=== PATIENT | male | born 1940 | race Caucasian/White ===

== ENCOUNTER → 2023-06-13 07:07 | Outpatient (REF) | payer OTHER, SELFPAY ==
[2023-06-13 07:41] LABS: % Basophils 0.6 % (0-2); % Immature Granulocytes 0.3 % (0-0.5); % Lymphocytes 24.5 % (20.5-51.1); % Monocytes 10.2 % (1.7-9.3); % Neutrophils 60.4 % (42.2-75.2); Absolute Basophils 0.1 10^3/uL (0-0.2); Absolute Eosinophils 0.4 10^3/uL (0-0.7); Absolute Lymphocytes 2.1 10^3/uL (1.2-3.4); Absolute Monocytes 0.9 10^3/uL (0.1-0.6); Absolute Neutrophils 5.2 10^3/uL (1.4-6.5); Hematocrit 44.6 % (39.0-52.0); Hemoglobin 15.1 g/dL (13.0-18.0); Mean Corp Hgb Conc. 33.9 g/dL (33.0-37.0); Mean Corpuscular Hgb 32.4 pg (27.0-31.0); Mean Corpuscular Volume 95.7 fL (80.0-94.0); Mean Platelet Volume 9.8 fL (7.4-10.4); Nucleated Red Blood Cells % 0 % (-); Platelet Count 201 10^3/uL (130-400); Red Blood Cell Count 4.66 10^6/uL (4.70-6.10); Red Cell Dist. Width 12.2 % (11.5-14.5); White Blood Cell Count 8.7 10^3/uL (4.8-10.8)
[2023-06-13 10:53] LABS: ALT (SGPT) 16 U/L (0-50); AST (SGOT) 25 U/L (17-59); Albumin 4.1 g/dl (3.5-5.0); Alkaline Phosphatase 58 U/L (38-126); Blood Urea Nitrogen 13 mg/dl (9-20); Calcium 9.1 mg/dl (8.4-10.2); Carbon Dioxide 29 mmol/L (22-30); Chloride 104 mmol/L (98-107); Glucose 98 mg/dl (70-99); Potassium 4.7 mmol/L (3.5-5.1); Sodium 139 mmol/L (135-145); Total Bilirubin 0.7 mg/dl (0.2-1.3); Total Protein 7.5 g/dl (6.3-8.2); eGFR > 60.00
[2023-06-13 11:01] LABS: Digoxin < 0.4 ng/ml (0.8-2.0)
== END ==
LOC: REG 07:07
PROVIDERS: ATTENDING PHYSICIAN Internal Medicine Cardiovascular Disease; FAMILY PHYSICIAN Internal Medicine
DX: I48.0 Paroxysmal atrial fibrillation (principal)
CPT/HCPCS: 36415; 80053; 80162; 85025

== ENCOUNTER 2023-06-21 06:09 | Day surgery (SDC) | payer OTHER, SELFPAY ==
[2023-06-21] VITALS (10 sets, daily range): BP systolic 93–108; BP diastolic 65–80; BMI 25.4
[2023-06-21] MEDS: TYLENOL 1000 MG PO (07:29)
[2023-06-21 09:55] LABS: ACT-LR - POC 372 Seconds (116-155)
[2023-06-21 10:15] LABS: ACT-LR - POC 368 Seconds (116-155)
[2023-06-21 10:38] LABS: ACT-LR - POC 332 Seconds (116-155)
--- NOTE | 2023-06-21 11:29 | ITS.CL.ABL ---
Chuck Wagon Cook - Ablation
Ablation
Procedure Report:
AFIB ablation:
Mr. Lopez is a very pleasant 83 yr old gentleman, well known to Dr. Aguilera, with h/o AF ablation on 09/10/20 that included PVI, CTI and roof line for his fibrillation and flutters. He has had recurrence of AF and now paroxysmal AF with persistent
atrial flutter failing Tikosyn presented today to the EP lab for atrial fibrillation/flutter ablation
Date of Procedure:
06/21/2023
Indications:
Recurrent atrial fibrillation / flutter
Pre-Operative Diagnosis:
Recurrent atrial fibrillation / flutter
Post-Operative Diagnosis:
Recurrent atrial fibrillation / flutter
Procedure Performed:
Atrial fibrillation Redo ablation with wide area circumferential ablation (WACA) approach for pulmonary vein re-isolation
Roof line formation for atypical atrial flutter
Posterior wall isolation for recurrent atrial fibrillation
Cavotricuspid flutter ablation
Performing Physician:
Paige Urbano MD
Assistants:
EP staff
Anesthesia:
See anesthesia records
Detailed Description of the Procedure:
Written informed consent was obtained from the patient after a full explanation of the risks and benefits of the procedure including the risks of sedation and anesthesia.
The patient was brought to the electrophysiology laboratory in stable condition in fasting state. Continuous electrocardiographic and hemodynamic monitoring was initiated.
The initial rhythm was atrial flutter.
The procedure site was meticulously prepared with surgical scrub and allowed to dry with no pooling. Sterile draping was applied to cover the procedure site. The image intensifier was draped with sterile bag and positioned over the patient. After
infusion of local anesthetic, vascular access was obtained under ultrasound guidance and sheaths were placed over guide wire as detailed below.
Sheath and Catheter Placement:
The following catheters / sheaths were placed
Sheaths:
��������� Agilis sheath in right femoral vein upgraded from 8Fr in right femoral vein
��������� 7Fr in right femoral vein
��������� 9Fr in right femoral vein
Catheters:
��������� Biosense Mi Thermocool STSF bidirectional� - at locations of HRA, RV, LA and LV.
��������� Pentaray catheter � at locations of RA, RV, LA and LV
��������� ICE catheter -AcuNav -� at locations of RA, SVC, and RV.
��������� Decapolar Bard catheter in RA and CS
Intracardiac ECHO:
An 8-Ukrainian AcuNav intracardiac ECHO (ICE) probe was advanced through the 9-Ukrainian sheath in the left femoral vein into the right atrium under fluoroscopic and ICE ultrasound image guidance and a baseline ECHO study was performed. The left atrial
size was dilated. There was mild to moderate tricuspid regurgitation. The aortic valve was grossly normal. There was mild left ventricular systolic dysfunction. There was small circumferential pericardial effusion. The NAYA has decreased velocities
noted on Doppler. All the four veins were identified and has good flow identified.
During the procedure, ICE was used for monitoring of complications, guidance of trans-septal puncture, monitor the catheter position and tracking ablation lesions. No change in the pericardial space noted throughout the procedure.
Electroanatomic mapping (EAM) of the right atrium:
A J-tipped guidewire was advanced through the 8-Ukrainian sheath in the right femoral vein into the superior vena cava under EAM and ICE guidance. The 8-Ukrainian sheath was exchanged for Agilis sheath which was advanced into the superior vena cava. Using
the Pentaray catheter advanced through the sheath into the right atrium, an electroanatomic map (EAM) of the right atrium was created using [employer] Carto mapping system. The map was used to identify the trans-septal location.
First EP study was done that showed baseline measurements
AA 302
VV 604
QRS 116
QT 430
HV 46
Ablation # 1: Typical Atrial Flutter Ablation:
The flutter was entrained from prox CS and the distal CS and it was closer to the prox CS and distal CS was out consistent with typical flutter.
The RA was mapped that showed typical atrial flutter with reconnection at the CTI. The reconnection of the CTI area identified. Radiofrequency ablation was performed using a 3.5mm, open irrigation, force-sensing bidirectional ablation catheter
(Thermocool STSF) in the cavotricuspid isthmus from the tricuspid annulus to the IVC ridge. All the ablation lesions were guided by the [facility] SURPOINT module with the CTI lesions were limited to 45 nelson for SURPOINT lesion index goal of 450.
The tachycardia slowed and terminated with ablation into sinus rhythm.
��������������� -Bidirectional block was confirmed across the CTI line with differential pacing.
��������������� -Double potentials were spaced greater than 125 msec apart.
��������������� -The conduction time across the CTI line from proximal CS pacing was 198 msec.
��������������� -EAM of the right atrium was obtained with coronary sinus pacing and showed a line of block at the CTI.
��������������� -The time interval just lateral to the ablation lesions was 198 msec and the lateral wall was 145 msec
��������������� - All these maneuvers confirmed the block at the CTI line.
- Post ablation HV interval was unchanged at 45msec
Then attention was given to left atrial ablation.
Transseptal Puncture:
Heparin was initiated and infused to maintain appropriate ACT. A J-tipped guidewire was advanced through the 8-Ukrainian sheath in the right femoral vein into the superior vena cava under fluoroscopic and ICE guidance. The 8-Ukrainian sheath was exchanged
for an Agilis sheath which was advanced into the superior vena cava. A BRK transseptal needle was advanced until the tip was slightly behind the tip of the dilator inside the sheath. The apparatus was withdrawn until it was in contact with the fossa
ovalis.
The cardiac chambers had rotated anatomy and extreme care needed to performt he transseptal puncture.
The position of the needle and sheath was adjusted based on fluoroscopy and ultrasound images from ICE. Under fluoroscopic, hemodynamic and ICE ultrasound guidance, left atrium was cannulated by advancing the needle. Once atrial septum was
cannulated, the needle was pulled back and a BMW guide wire was advanced through the needle into the left atrium. The guide wire was advanced into the left superior pulmonary vein. Both the sheath and the dilator was advanced into the left atrium
under fluoro and ICE guidance. The dilator with the needle was withdrawn. Blood was aspirated from the Agilis sheath and arterial blood confirmed. The sheath was flushed. Saline injection noted into the left atrium on ICE. The mapping catheter was
advanced in the Agilis sheath into the left pulmonary vein.
3D Electroanatomic Mapping:
Using the Pentaray catheter advanced through Agilis sheath into the left atrium, an electroanatomic map (EAM) of the left atrium was created using [employer] Carto mapping system. The map was used for localization of catheter position and
tacking of ablation lesions. The EAM of the left atrium showed 4 pulmonary veins with the left sided pulmonary veins electrically reconectedt with some posterior wall electrical activity. The right sided superior and inferior pulmonary veins were
isolated from the body the LA. It showed moderate scar on the posterior and anterior wall of the LA. The LA was dilated in size.
Following the EAM, preparation were made for ablation.
Ablation # 2: Pulmonary vein Isolation:
Radiofrequency ablation was performed using an open irrigation, force-sensing 3.5mm radiofrequency ablation catheter (ThermoDeliveroo STSF) by completing the circumferential lesions around the left pulmonary vein achieving pulmonary vein isolation. There
was fractionated signal noted in the antrum of the LIPV and additional ablations were placed to create full isolation.
All the ablation lesions were guided by the [facility] SURPOINT module with the posterior lesions were limited to 45 nelson for SURPOINT lesion index goal of 400 and anterior wall lesions were limited to SURPOINT index goal of 450.
There were deep LSPV epicardial connections noted and those areas were ablated.
Ablation # 3: Roof line Formation:
There was a clear channel of electrical activity left in the posterior wall with multiple CFAE and AF areas on the roof significant scar noted on the roof with some residual electrical activity noted. This increased the risk of atrial flutter and
decision was made to create a roof line to block a slow conduction.
The previous roof line appears to have reconnection as well.
A set of radiofrequency ablations were placed on the roof line connecting the left superior pulmonary vein ablation lesions to the right superior pulmonary vein lesions rings.
Ablation # 4: Posterior wall isolation with the Box lesions set Formation:
There was a significant fractionation seen in the posterior wall and LA AF foci made it clear as the posterior wall is critical in maintaining the atrial fibrillation and the decision was made to isolate the posterior wall by creating a �Box�
lesions.
A set of radiofrequency ablations were placed on the floor line connecting the left inferior pulmonary vein ablation lesions to the right inferior pulmonary vein lesions rings.
Epicardial posterior wall connection ablation:
The EAM of the LA showed epicardial connection at the center of the left atrial posterior wall. The area was mapped and was paced that was able to capture the LA through that point. The epicardial connection had no signals around it and no capture
or was noted on the roof or the floor line.
The epicardial connection was ablated with ablation lesion with a single ablation the connection dissipated. The area was connected to the roof line and to the floor line.
The penta-ray in the posterior wall showed entrance block with dissociated potentials and the pacing from the posterior wall showed local capture with no exit from the box lesions confirming the exit block.
The esophagus was noted to be on the left of the LA based on the locations of the esophageal temperature probe. Ablation was stopped for any temperature increase of 0.1 degree C. Max esophageal temperature was 35.4C.
Confirmation of the PVI and bidirectional block:
Following achievement of entrance block at the pulmonary veins, pacing from the pentaray in each of the four veins at 10 milliamps for 2 milliseconds showed entrance and exit block.
EP study:
Normal AV conduction noted.
The sinus node has recovered and patient remained in sinus rhythm
All PVI were rechecked at the end of the case and remained isolated with dissociated and local capture with pacing. Entrance and exit block were demonstrated in all veins.
Procedure End
ICE study was done again that showed no epicardial accumulation. No complications noted.
Following the completion of the EP study, catheters were removed. Protamine 40 mg was given at the end of the procedure and ACT was checked repeatedly. The sheaths were removed and hemostasis achieved with manual compression after acceptable ACT is
achieved.
Left atrial Pressure:
Pre-Procedure: Mean LA pressure was 20mmHg
Post-Procedure: Mean LA pressure was 23mmHg
Post-Procedure: Mean RA pressure was 11mmHg
Estimated Blood loss:
<10 cc
Specimens Removed:
None.
Implants / Devices:
None
Urine output:
None
Packs / Drains/ Tubes:
None
Instrument / Sponge Count Correct:
Yes
Complications of the Procedure:
None
Condition of Patient at Time of Transfer:
Hemodynamically stable with no neurological or vascular compromise.
Summary:
Successful typcial atrial flutter ablation with atrial fibrillation ablation with redo Pulmonary vein isolation, Epicardial connection ablation on posterior wall, Roof line formation, posterior wall isolation, Cavo tricuspid atrial flutter ablation
Figures from the Procedure:
Figure 1: The electroanatomic mapping (EAM) of the left atrium with bipolar voltage (purple indicates normal electrical activity with red as no myocardial muscle electric activity indicating a line of block or scar.
--- NOTE | 2023-06-21 14:53 | W.PN.UPDATE ---
Update Note
Progress Note Update
83 yo WM s/p PVI/CTI flutter ablation (same day). He feels good, no cp, sob, vega diet, voiding, amb w/o dizziness, R fem site c/d/i no HT, soft. EKG with SR post procedure, then starting having paroxysms of Afib. He will continue OAC Eliquis dose at
430pm at home. He will stop digoxin and restart dofetilide 500mcg in am 06/21. He will have EKG in office on Sunday to assess need for DCCV. His procedure was prolonged and with his prior pericarditis post ablation he will be on colchicine bid for 1
mo. Activity restrictions reviewed. He will f/u PHLEBOTOMY DIRECTOR in 2 weeks after EKG. He is for d/c home after 3pm.
Mr. Lopez is a very pleasant 83 yr old gentleman, well known to Dr. Aguilera, with h/o AF ablation on 09/10/20 that included PVI, CTI and roof line for his fibrillation and flutters. He has had recurrence of AF and now paroxysmal AF with persistent
atrial flutter failing Tikosyn presented today to the EP lab for atrial fibrillation/flutter ablation
Date of Procedure:
06/21/2023
Procedure Performed:
Atrial fibrillation Redo ablation with wide area circumferential ablation (WACA) approach for pulmonary vein re-isolation
Roof line formation for atypical atrial flutter
Posterior wall isolation for recurrent atrial fibrillation
Cavotricuspid flutter ablation
== END 2023-06-21 15:07 | disposition home or self-care (01) ==
LOC: CATH 06:09
PROVIDERS: ATTENDING PHYSICIAN Internal Medicine Cardiovascular Disease; FAMILY PHYSICIAN Internal Medicine; OTHER PHYSICIAN Internal Medicine Cardiovascular Disease
DX: I48.0 Paroxysmal atrial fibrillation (principal); I48.3 Typical atrial flutter; Z79.01 Long term (current) use of anticoagulants; I25.10 Atherosclerotic heart disease of native coronary artery without angina pectoris; I10 Essential (primary) hypertension; Z95.1 Presence of aortocoronary bypass graft; Z86.73 Personal history of transient ischemic attack (TIA), and cerebral infarction without residual deficits; I25.5 Ischemic cardiomyopathy; Z95.810 Presence of automatic (implantable) cardiac defibrillator
CPT/HCPCS: C1769; C1894; C1730; C1732; C1766; C1892; C1759; 76937; 85347; 86850; 86900; 86901; 93005; 93655; 93656; 93657; C1760

== ENCOUNTER 2023-06-22 16:19 | Emergency (ER) | payer OTHER, SELFPAY ==
[2023-06-22] VITALS (7 sets, daily range): BP systolic 95–127; BP diastolic 59–73; BMI 24.4
[2023-06-22 16:46] LABS: % Basophils 0.3 % (0-2); % Eosinophils 0.5 % (0-6); % Immature Granulocytes 0.4 % (0-0.5); % Lymphocytes 14.1 % (20.5-51.1); % Monocytes 8.9 % (1.7-9.3); % Neutrophils 75.8 % (42.2-75.2); Absolute Eosinophils 0.1 10^3/uL (0-0.7); Absolute Immature Granulocytes 0.1 10^3/uL (0-0.05); Absolute Lymphocytes 2.1 10^3/uL (1.2-3.4); Absolute Monocytes 1.3 10^3/uL (0.1-0.6); Absolute Neutrophils 11.1 10^3/uL (1.4-6.5); Hematocrit 39.9 % (39.0-52.0); Hemoglobin 13.7 g/dL (13.0-18.0); Mean Corp Hgb Conc. 34.3 g/dL (33.0-37.0); Mean Corpuscular Hgb 32.9 pg (27.0-31.0); Mean Corpuscular Volume 95.9 fL (80.0-94.0); Mean Platelet Volume 10.2 fL (7.4-10.4); Nucleated Red Blood Cells % 0 % (-); Platelet Count 167 10^3/uL (130-400); Red Blood Cell Count 4.16 10^6/uL (4.70-6.10); Red Cell Dist. Width 12.2 % (11.5-14.5); White Blood Cell Count 14.7 10^3/uL (4.8-10.8)
[2023-06-22 16:57] LABS: ALT (SGPT) 18 U/L (0-50); AST (SGOT) 38 U/L (17-59); Albumin 4.4 g/dl (3.5-5.0); Alkaline Phosphatase 58 U/L (38-126); Blood Urea Nitrogen 25 mg/dl (9-20); Calcium 8.9 mg/dl (8.4-10.2); Carbon Dioxide 30 mmol/L (22-30); Chloride 101 mmol/L (98-107); Glucose 112 mg/dl (70-99); INR 1.38; PT 16.8 Sec (11.4-14.6); Potassium 4.3 mmol/L (3.5-5.1); Sodium 135 mmol/L (135-145); Total Bilirubin 0.9 mg/dl (0.2-1.3); Total Protein 7.6 g/dl (6.3-8.2); eGFR > 60.00
[2023-06-22 16:58] LABS: APTT 31.2 Sec (23.4-35.0)
[2023-06-22 17:10] LABS: Troponin I 0.876 ng/ml
--- NOTE | 2023-06-22 18:23 | EDRN ---
Carmela Sanchez PA in to see pt.
--- NOTE | 2023-06-22 18:24 | ED.GENMED ---
History of Present Illness
General
Chief Complaint: Numbness
Time Seen by Provider: 06/22/23 18:10
Travel History
Have you had any contact with someone who has COVID-19?: No
Do you have any symptoms of coronavirus? Fever > 100 degrees, chills, cough, shortness of breath, sore throat, loss of taste or smell, muscle aches, or headache?: No
History of Present Illness
History of Present Illness:
83-year-old male with history of A-fib, COPD, prior stroke, CHF, hypertension, and hyperlipidemia presents to the emergency department for evaluation of right hand weakness. He states that he felt the symptoms develop after waking up from his
cardiac ablation that was done yesterday. Time of onset is greater than 24 hours ago. Denies any additional symptoms although his spouse feels that his speech is not as clear as it should be, the patient attributes this to dry mouth. No
associated chest pain or shortness of breath. No recent fevers or chills. He held his Eliquis for 1 dose yesterday morning preablation and resumed that night.
Past History
Past History
ED Past Medical History: Arrthythmia (Atrial fibrillation), CAD, COPD, CVA, HTN, Hypercholesterolemia and Other (Coronary artery disease status post stents x6, status post NM, hypertension, hypercholesterolemia, status post pacer/defib)
ED Past Surgical History: Cardiac (AICD, NM with stents) and Other (Pneumothorax, hernia repair, vasectomy)
Social History
Tobacco: Former smoker
Alcohol: Occasional
Drug: None
Personal:
Living: with family
Family History
Family History: Early CAD
Review of Systems
Review of Systems
Allergies reviewed?: Yes
All Other Systems: ROS reviewed and negative except as documented in HPI and ROS
Phy Exam
Physical Exam
Physical Exam:
GEN: Well appearing, NAD, WDWN
HEENT: Oral mucosa moist, no scleral icterus, no nasal congestion
Cardiac: Regular rate
Lung: No respiratory distress, no tachypnea
MSK: No gross deformity or injuries
Skin: Good color, no pallor or jaundice, no rashes
Neuro: AO x3; CN II-XII grossly intact. Right hand strength is 4 out of 5, otherwise all mathew of the right upper extremity display 5 out of 5 strength, symmetric to the left. Bilateral lower extremity strength is 5 out of 5 and symmetric.
Sensation is globally intact throughout all mathew. Normal sdiary-gr-bvzv and slsv-dp-tyni. Diminished rapid alternating movements on the right hand
Psych: Calm, cooperative
Course
Orders/Labs/Results
Orders:
Orders
06/22/23 16:32
Electrocardiogram (*1) Urgent
Reason for Study: Other
Other Reason for Exam: Possible Stroke
EKG- Treatment ONCE
06/22/23 16:39
Complete Blood Count/With Diff Urgent
Comprehensive Metabolic Panel Urgent
PTT Urgent
Prothrombin Time Urgent
Troponin I Urgent
06/22/23 18:24
CT Head W/o Iv Contrast Urgent
Comment:
Reason For Exam: R hand weakness
06/22/23 18:32
Electrocardiogram (*1) Urgent
Reason for Study: Chest Pain
EKG- Treatment ONCE
06/22/23 18:37
Troponin I Urgent
06/22/23 20:01
CT Head & Neck Angio W/wo IV Urgent
Comment:
Reason For Exam: stroke symptoms
Apixaban [Eliquis] 5 mg PO NOW STA
Carvedilol [Coreg] 12.5 mg PO NOW STA
Colchicine 0.6 mg PO NOW STA
Rosuvastatin Calcium [Crestor] 10 mg PO NOW STA
06/22/23 20:19
Dofetilide [Tikosyn] 500 mcg PO NOW STA
Sacubitril 24/Valsartan 26 [Entresto 24 mg/26 mg] 0.5 tab PO NOW STA
Abnormal Lab Results
06/22/23 06/22/23
16:39 18:37
WBC 14.7 H 10^3/uL
(4.8-10.8)
RBC 4.16 L 10^6/uL
(4.70-6.10)
MCV 95.9 H fL
(80.0-94.0)
MCH 32.9 H pg
(27.0-31.0)
Abs Immat Gran (auto) 0.1 H 10^3/uL
(0-0.05)
Absolute Neuts (auto) 11.1 H 10^3/uL
(1.4-6.5)
Absolute Monos (auto) 1.3 H 10^3/uL
(0.1-0.6)
Neutrophils % 75.8 H %
(42.2-75.2)
Lymphocytes % 14.1 L %
(20.5-51.1)
PT 16.8 H Sec
(11.4-14.6)
BUN 25 H mg/dl
(9-20)
Glucose 112 H mg/dl
(70-99)
Troponin I 0.876 H* ng/ml 0.745 H* ng/ml
06/22/23 16:39
06/22/23 16:39
Vital Signs
Initial and Last Documented VS:
Initial Vital Signs
Temp Pulse Resp BP Pulse Ox
98.2 F 78 16 127/69 98
06/22/23 16:23 06/22/23 16:23 06/22/23 16:23 06/22/23 16:23 06/22/23 16:23
Last Documented Vital Signs
Temp Pulse Resp BP Pulse Ox
98.2 F 69 17 107/66 94
06/22/23 16:23 06/22/23 21:52 06/22/23 21:52 06/22/23 21:52 06/22/23 19:00
MDM/Problems Addressed
MDM/Problems Addressed:
83-year-old male presents with right hand weakness. This developed after waking up from anesthesia for cardiac ablation. It is uncertain whether this could represent an acute stroke versus a radial nerve palsy from surgical positioning. He has no
other obvious stroke deficits. Head CT does show age-indeterminate infarcts however these are not clearly correlating with his symptoms. I discussed the case with neurology who recommended we obtain a CT angiogram to evaluate the carotid arteries,
this was essentially unremarkable. Given that he is maximized on medical therapy for stroke prevention without anticoagulants and antilipid agents, no further medication changes at this time. Patient requested outpatient physical and Occupational
Therapy evaluation which I have obliged for him
*Critical Care Note
Total Time (30-74mins, 75-104mins- exclusive of procedures): Not Applicable
Update Note
Update Note:
Discussed case with on-call neurology, they are recommending CT angiogram of the head and neck to evaluate the carotids
ED Attending Note
-
Portions of this chart may have been created with voice recognition software.� Occasional wrong word or��sound alike� substitutions may have occurred due to the inherent limitations of voice recognition software.
Discharge Plan
Departure
Patient Disposition: Home (Routine Discharge)
Date of Disposition: 06/22/23
Time of Disposition: 21:35
Patient with high blood pressure during this ER visit?: No
Discharge Problem:
Right hand weakness
Instructions: Radial Nerve Entrapment (DC)
Prescriptions:
No Action
gabapentin 300 MG capsule
600 mg PO QID
Eliquis 5 MG tablet
5 mg PO BID Qty: 60 5RF
cyanocobalamin (vitamin B-12) 1,000 MCG tablet
1,000 mcg PO HS
aspirin [Ecotrin Low Strength] 81 MG tablet,delayed release (DR/EC)
81 mg PO DAILY
multivitamin Tablet
1 tab PO DAILY
carvedilol 12.5 mg tablet
12.5 mg PO BID
rosuvastatin 10 mg tablet
10 mg PO QPM
pantoprazole [Protonix] 40 mg tablet,delayed release (DR/EC)
40 mg PO DAILY Qty: 14 0RF
dofetilide [Tikosyn] 500 mcg capsule
500 mcg PO Q12H Qty: 1 0RF
Entresto 24-26 mg Tablet
0.5 tab PO BID
colchicine 0.6 mg tablet
0.6 mg PO BID
Rx Instructions:
Take 0.6mg twice daily for 1 week, then 0.3mg twice daily for 1 month, then stop
acetaminophen [Tylenol] 325 mg Tablet
650 mg PO Q4H PRN (Reason: MILD PAIN)
Referrals:
Marlin Avelar MD [Family Provider] -
Activity Restrictions/Additional Instructions:
It is not clear if your symptoms represent a nerve injury to the radial nerve versus an acute stroke. There are no changes to your medications at this time. Follow-up to primary care physician next week and schedule a follow-up appoint with
physical therapy as we discussed
Interventions
Interventions:
*Risk Screen - Suicide Last Done: 06/22/23 16:23
*General Assessment Last Done: 06/22/23 16:23
*Neglect/Abuse Screening Last Done: 06/22/23 16:23
ED- Fall Risk Assessment Last Done: 06/22/23 17:50
*ED COVID-19 Vaccine History Last Done: 06/22/23 17:50
*Nursing Disposition Last Done: 06/22/23 22:21
ED- Neurological Assessment Last Done: 06/22/23 17:50
Discharge Date and Time
Discharge Date/Time: 06/22/23 22:22
[2023-06-22 19:10] LABS: Troponin I 0.745 ng/ml
[2023-06-22] MEDS: ELIQUIS 5 MG PO (20:32)
[2023-06-22] MEDS: CRESTOR 10 MG PO (20:32)
[2023-06-22] MEDS: TIKOSYN 500 MCG PO (20:32)
[2023-06-22] MEDS: COLCHICINE 0.599999999999999978 MG PO (20:32)
[2023-06-22] MEDS: ENTRESTO 24 MG/26 MG 0.5 TAB PO (20:33)
[2023-06-22] MEDS: COREG 12.5 MG PO (20:33)
== END 2023-06-22 22:22 | disposition home or self-care (01) ==
LOC: EMR 16:19
PROVIDERS: Emergency Medicine; Physician Assistant; EMERGENCY PHYSICIAN Emergency Medicine; FAMILY PHYSICIAN Internal Medicine
DX: R53.1 Weakness (principal); I48.91 Unspecified atrial fibrillation; J44.9 Chronic obstructive pulmonary disease, unspecified; I11.0 Hypertensive heart disease with heart failure; I50.9 Heart failure, unspecified; E78.00 Pure hypercholesterolemia, unspecified; I25.10 Atherosclerotic heart disease of native coronary artery without angina pectoris; I25.2 Old myocardial infarction; Z82.49 Family history of ischemic heart disease and other diseases of the circulatory system; Z86.73 Personal history of transient ischemic attack (TIA), and cerebral infarction without residual deficits; Z87.891 Personal history of nicotine dependence; Z95.5 Presence of coronary angioplasty implant and graft; Z95.810 Presence of automatic (implantable) cardiac defibrillator
CPT/HCPCS: 99284; 70450; 70496; 70498; 80053; 84484; 85025; 85610; 85730; 93005; Q9967

== ENCOUNTER 2023-07-02 11:26 | Outpatient (RCR) | payer OTHER, SELFPAY | END 2023-07-02 23:59 | disposition home or self-care (01) | LOC: ROT 11:26 | PROVIDERS: ATTENDING PHYSICIAN Internal Medicine | DX: M79.641 Pain in right hand (principal); Z73.6 Limitation of activities due to disability | CPT/HCPCS: 97165; 97535 ==

== ENCOUNTER → 2023-11-15 07:42 | Outpatient (REF) | payer OTHER, SELFPAY ==
[2023-11-15 09:16] LABS: % Basophils 0.7 % (0-2); % Immature Granulocytes 0.4 % (0-0.5); % Monocytes 9.7 % (1.7-9.3); % Neutrophils 66.2 % (42.2-75.2); Absolute Basophils 0.1 10^3/uL (0-0.2); Absolute Eosinophils 0.3 10^3/uL (0-0.7); Absolute Lymphocytes 1.6 10^3/uL (1.2-3.4); Absolute Monocytes 0.8 10^3/uL (0.1-0.6); Absolute Neutrophils 5.5 10^3/uL (1.4-6.5); Hematocrit 42.6 % (39.0-52.0); Hemoglobin 14.6 g/dL (13.0-18.0); Mean Corp Hgb Conc. 34.3 g/dL (33.0-37.0); Mean Corpuscular Hgb 32.5 pg (27.0-31.0); Mean Corpuscular Volume 94.9 fL (80.0-94.0); Mean Platelet Volume 9.9 fL (7.4-10.4); Nucleated Red Blood Cells % 0 % (-); Platelet Count 181 10^3/uL (130-400); Red Blood Cell Count 4.49 10^6/uL (4.70-6.10); Red Cell Dist. Width 12.1 % (11.5-14.5); White Blood Cell Count 8.2 10^3/uL (4.8-10.8)
[2023-11-15 12:15] LABS: ALT (SGPT) 15 U/L (0-50); AST (SGOT) 25 U/L (17-59); Albumin 4.2 g/dl (3.5-5.0); Alkaline Phosphatase 48 U/L (38-126); Blood Urea Nitrogen 16 mg/dl (9-20); Calcium 9.2 mg/dl (8.4-10.2); Carbon Dioxide 31 mmol/L (22-30); Chloride 101 mmol/L (98-107); Glucose 91 mg/dl (70-99); HDL Cholesterol 50 mg/dl; LDL Cholesterol, Calculated 55 mg/dl; Potassium 4.8 mmol/L (3.5-5.1); Sodium 139 mmol/L (135-145); Total Bilirubin 0.6 mg/dl (0.2-1.3); Total Cholesterol 116 mg/dl (50-199); Triglyceride 56 mg/dl (10-149); Very Low Density Lipoprotein 11 mg/dl (0-30); eGFR > 60.00
[2023-11-15 12:35] LABS: TSH 0.94 uIU/ml (0.47-4.68)
[2023-11-18 01:14] LABS: PSA Total 0.9 ng/mL (0.0-4.0)
== END ==
LOC: REG 07:42
PROVIDERS: ATTENDING PHYSICIAN Internal Medicine; REFERRING PHYSICIAN Nurse Practitioner Adult Health
DX: Z00.00 Encounter for general adult medical examination without abnormal findings (principal); R53.82 Chronic fatigue, unspecified; E78.5 Hyperlipidemia, unspecified; N40.0 Benign prostatic hyperplasia without lower urinary tract symptoms
CPT/HCPCS: 36415; 80053; 80061; 84153; 84154; 84443; 85025

== ENCOUNTER → 2024-04-02 13:23 | Outpatient (REF) | payer OTHER, SELFPAY | LOC: RCS 13:23 | PROVIDERS: ATTENDING PHYSICIAN Internal Medicine Cardiovascular Disease; FAMILY PHYSICIAN Internal Medicine | DX: I34.0 Nonrheumatic mitral (valve) insufficiency (principal) | CPT/HCPCS: 93306 ==

== ENCOUNTER 2025-03-16 06:29 | Day surgery (SDC) | payer OTHER, SELFPAY ==
[2025-02-27 10:28] VITALS: BMI 27.2
[2025-02-27 11:19] LABS: Hematocrit 45.4 % (39.0-52.0); Hemoglobin 15.1 g/dL (13.0-18.0); Mean Corp Hgb Conc. 33.3 g/dL (33.0-37.0); Mean Corpuscular Volume 98.7 fL (80.0-94.0); Nucleated Red Blood Cells % 0 % (-); Platelet Count 179 10^3/uL (130-400); Red Cell Dist. Width 12.4 % (11.5-14.5)
[2025-02-27 12:07] LABS: ALT (SGPT) 13 U/L (0-50); AST (SGOT) 19 U/L (17-59); Albumin 4.2 g/dl (3.5-5.0); Alkaline Phosphatase 49 U/L (38-126); Blood Urea Nitrogen 15 mg/dl (9-20); Calcium 9.2 mg/dl (8.4-10.2); Carbon Dioxide 30 mmol/L (22-30); Chloride 103 mmol/L (98-107); Estimated Creatinine Clearance 72 ml/min; Glucose 112 mg/dl (70-99); Potassium 5.1 mmol/L (3.5-5.1); Sodium 139 mmol/L (135-145); Total Protein 7.6 g/dl (6.3-8.2); eGFR > 60.00
[2025-03-16] VITALS (7 sets, daily range): BP systolic 88–113; BP diastolic 56–80
--- NOTE | 2025-03-16 08:17 | W.ICD.CONTRA ---
Post ICD/DRY PRESS OPERATOR-D
-
History of AR?: Yes
LV Function
Left ventricular function study result?: Ejection Fraction >/= 40%
ACEI/ARB/ARNI
Patient already on ACEI/ARB/ARNI: Yes
Beta-Sharon
Patient already on Beta Sharon: Yes
--- NOTE | 2025-03-16 10:15 | ITS.CL.ICD ---
Medical Leader - ICD
Implantable Cardioverter Defibrillator
Procedure Report:
Date of Procedure: March 16, 2025.
Procedures: ICD Pulse Generator Explantation and ICD Pulse Generator Implantation.
Indication: Secondary prevention ICD. NYHA heart failure class: II for more than 5 years. LVEF 4-45% by echo on 04/02/2024. QRS duration 92 ms without bundle branch block. Ischemic cardiomyopathy with a history of prior ID. Sustained VT in 2021
with recurrence leading to VT ablation in 2021. History of AFib, s/p prior AFib ablations, usually in sinus rhythm. Shared decision making in the office setting with Dr. Castillo and the patient led the patient to chose to proceed with ICD generator
change for GILMAR from natural battery depletion.
Performing physician: Bhaskar Cisneros MD, [facility].
Implant: ICD Pulse Generator: Medtronic; Model# [id number]; Serial# [id number].
Explanted ICD Pulse Generator (Implanted 08/13/2015): Medtronic; Model [id number]; Serial# [id number].
Retained RA Lead (Implanted 09/10/2007): Medtronic; Model# [id number]; Serial# [id number].
Retained RV Lead (Implanted 09/10/2007) : Medtronic; Model# [id number]; Serial# [id number].
Technique: A time-out was performed. The procedure site was identified. The anesthesia service anesthetized the patient. Preoperative cefazolin was administered before the skin incision. The patient was prepped and draped in the usual fashion. Local
anesthetic was applied to the right pre-pectoral subcutaneous tissue. A 3-inch incision was made over the pulse generator. The capsule was entered with Bovie cautery. The old ICD pulse generator was explanted. No Bovie cautery was applied to the
lead system. The leads were appropriately attached to the new ICD pulse generator. The pocket was irrigated with an antibiotic solution. Hemostasis was excellent. The device and leads were placed in the pocket. A [employer], TYRX Absorbable
Antibacterial Envelope was placed in the pocket, (Ref [id number]; Lot [id number]). The incision was closed in three layers with an absorbable suture. Steri-strips and a silver impregnated dressing were applied. The estimated blood loss was less than 2
mL. There were no complications. No fluoroscopy was used.
Lead Analysis:
RA lead: P: 1.8 mV; Threshold: 0.75 V @ 0.4 ms; Impedance: 399 ohms.
RV lead: R: 12.8 mV; Threshold: 1 V @ 0.4 ms; Impedance: 380ohms. HVB 41 ohms. HVX 53 ohms.
Final Programming: VT 162 bpm, VF 188 bpm; VT monitor 130 bpm, Richard: MVP (AAIR to DDDR) 60-120 bpm.
Conclusion: Uncomplicated ICD change. The ICD system is [ ] MRI safe/conditional.
Recommendation: Routine post ICD care.
cc: Prosper Castillo MD and Marlin Avelar MD.
== END 2025-03-16 10:01 | disposition home or self-care (01) ==
LOC: CATH 06:29
PROVIDERS: ATTENDING PHYSICIAN Internal Medicine Cardiovascular Disease; FAMILY PHYSICIAN Internal Medicine; OTHER PHYSICIAN Student in an Organized Health Care Education/Training Program
DX: Z45.02 Encounter for adjustment and management of automatic implantable cardiac defibrillator (principal); I50.22 Chronic systolic (congestive) heart failure; I11.0 Hypertensive heart disease with heart failure; I25.5 Ischemic cardiomyopathy; I48.0 Paroxysmal atrial fibrillation; E78.5 Hyperlipidemia, unspecified; Z95.1 Presence of aortocoronary bypass graft; I25.10 Atherosclerotic heart disease of native coronary artery without angina pectoris; J84.10 Pulmonary fibrosis, unspecified; Z87.891 Personal history of nicotine dependence; N40.0 Benign prostatic hyperplasia without lower urinary tract symptoms; I69.898 Other sequelae of other cerebrovascular disease; R26.89 Other abnormalities of gait and mobility; Z79.82 Long term (current) use of aspirin; Z79.899 Other long term (current) drug therapy; Z79.01 Long term (current) use of anticoagulants
CPT/HCPCS: 33264; 33263; 36415; 80053; 85025; 93005; C1721